=== PATIENT | male | born 1970 | race Caucasian/White ===

== ENCOUNTER 2016-06-04 00:59 | Emergency (ER) | payer MEDICARE ==
[~2016-06-04] VITALS: Ht 185.4 cm; Wt 72.6 kg
[2016-06-04 01:21] VITALS: BP 108/66
== END 2016-06-04 04:07 | disposition home or self-care (01) ==
LOC: ER 00:59
DX: Z00.8 Encounter for other general examination (principal); F20.9 Schizophrenia, unspecified; F17.200 Nicotine dependence, unspecified, uncomplicated
CPT/HCPCS: 99281; A4606; Z7502; Z7610